=== PATIENT | female | born 1940 | race Caucasian/White ===

== ENCOUNTER → 2017-12-08 | Outpatient (CLI) | payer OTHER ==
[~2017-12-08] MED LIST: ASPI-555 PO; CHOL200012 PO; CRAN500C2 PO; FENO67CA PO; FISH1CAP50 PO; LOSA1TAB42 PO; OMEG1CAP83 PO; POTA2TAB18 PO; [UNRECOGNIZED DRUG - CODE] PO
== END | disposition home or self-care (01) ==
LOC: RAH 12:08
PROVIDERS: ATTEND Internal Medicine Critical Care Medicine
DX: M25.561 Pain in right knee (principal); R05 Cough
CPT/HCPCS: 71046; 73562

== ENCOUNTER → 2019-03-29 | Outpatient (CLI) | payer OTHER | END | disposition home or self-care (01) | LOC: RAH 09:33 | PROVIDERS: ATTEND Internal Medicine Gastroenterology | DX: K57.30 Diverticulosis of large intestine without perforation or abscess without bleeding (principal); Z86.010 Personal history of colon polyps | CPT/HCPCS: 74270 ==